=== PATIENT | male | born 1950 | race Caucasian/White ===

== ENCOUNTER → 2019-04-28 09:11 | Outpatient (BNVA) | payer MEDICARE, SELFPAY | PROVIDERS: Family Provider Family Medicine; PCP Family Medicine; Visit Provider Urology | DX: R97.20 Elevated prostate specific antigen [PSA] (principal); N39.9 Disorder of urinary system, unspecified; Z80.42 Family history of malignant neoplasm of prostate | CPT/HCPCS: 81001; 84153 ==

== ENCOUNTER 2019-05-07 09:48 | Outpatient (CLI) | payer MEDICARE, SELFPAY ==
[2019-05-07 10:21] LABS: Basophils % 0.7 %; Eosinophils # 0.1 10^3/uL (0.0-0.8); Eosinophils % 1.1 %; Hematocrit 38.7 % (42.0-52.0); Hemoglobin 12.8 g/dL (11.7-16.6); Lymphocytes # 2.2 10^3/uL (0.8-4.8); Lymphocytes % 40.9 %; Mean Corpuscular HGB Conc 33.1 g/dL (30.0-36.0); Mean Corpuscular Volume 96.8 fL (80-94); Mean Platelet Volume 10.6 fL (7.4-10.4); Monocytes # 0.4 10^3/uL (0.2-0.9); Monocytes % 7.5 %; Neutrophils # 2.7 10^3/uL (1.8-7.7); Neutrophils % 49.6 %; Nucleated Red Blood Cells % 0 %; Platelet Count 208 10^3/cmm (130-400); White Blood Count 5.4 10^3/uL (4.0-10.0)
[2019-05-07 10:37] LABS: Prostate Specific Antigen 7.33 ng/mL (0-4); Thyroid Stimulating Hormone 2.32 uIU/mL (0.27-4.20)
[2019-05-07 10:48] LABS: Alanine Aminotransferase 10 U/L (0-41); Albumin Level 4.2 g/dL (3.5-5.2); Alkaline Phosphatase 47 IU/L (40-130); Anion Gap 16.3 (5-19); Aspartate Amino Transferase 19 U/L (0-40); Blood Urea Nitrogen 12 mg/dL (8-23); Calcium 9.6 mg/dL (8.5-10.5); Carbon Dioxide 24 mmol/L (22-29); Chloride 105 mmol/L (98-107); Chol HDL Ratio 3.34 mg/dL (1.0-5.00); Cholesterol 157 mg/dL (0-200); Globulin 2.3 g/dL (1.3-4.6); Glomerular Filtration Rate 66.2 mL/min (90-130); Glucose 85 mg/dL (65-115); HDL Cholesterol 47 mg/dL (60-100); LDL Cholesterol Calculated 92 mg/dL (50-129); LDL HDL Ratio 1.96 RATIO (0.00-3.22); Potassium 4.3 mmol/L (3.5-5.1); Sodium 141 mmol/L (136-145); Total Bilirubin 0.4 mg/dL (0.15-1.2); Total Protein 6.5 g/dL (6.6-8.7); Triglycerides 92 mg/dL (0-150)
== END 2019-05-07 09:49 | disposition home or self-care (01) ==
LOC: LAB 09:54
PROVIDERS: Family Provider Family Medicine; PCP Family Medicine; Visit Provider Family Medicine
DX: Z00.00 Encounter for general adult medical examination without abnormal findings (principal); R97.20 Elevated prostate specific antigen [PSA]; Z80.42 Family history of malignant neoplasm of prostate
CPT/HCPCS: 36415; 80053; 80061; 84153; 84443; 85025

== ENCOUNTER 2019-06-18 11:09 | Outpatient (CLI) | payer MEDICARE, SELFPAY ==
[2019-06-18 11:46] VITALS: BMI 25.0
--- NOTE | 2019-06-18 11:55 | ECG_ITS ---
NAME OF STUDY: TREADMILL STRESS TEST INDICATION: Chest Pain, EXERCISE DATA: The patient was exercised by Manuel protocol. Baseline heart rate was 50 beats per minute. Baseline blood pressure was 105/63 millimeters of mercury. Target heart rate was 150 beats per minute. Maximum heart rate achieved was 153, which was 102% of the target heart rate. Maximum blood pressure was 184/70 millimeters of mercury. Total exercise time was 11 minutes 11 seconds. Maximum METs achieved was 13.5, maximum VO2 was 47.3. The reason for ending the test was maximum effort achieved. The patient complained of shortness of breath during the stress test, which then resolved at the end of the test. ELECTROCARDIOGRAM: BASELINE: Sinus bradycardia, normal axis, no significant ST-T changes at the baseline noted. EXERCISE: At the peak exercise level, no significant ST-T changes suggestive of ischemia noted. RECOVERY: During the recovery period, heart rate dropped appropriately. No significant ST-T changes in the recovery suggestive of ischemia noted. CONCLUSION: 1. Exercise capacity good. 2. Heart rate response was appropriate. 3. Blood pressure response was hypertensive. 4. Symptoms not suggestive of ischemia. 5. Electrocardiogram portion of the stress test was not suggestive of ischemia. 6. Nuclear scan will be documented separately. Electronically Signed On 06-18-2019 18:03:26 CDT by Reshma Shepherd M.D. [email or web address]
[2019-06-18 12:01] VITALS: BP 169/79; PULSE 80
== END 2019-06-18 11:10 | disposition home or self-care (01) ==
LOC: CDL 11:16
PROVIDERS: Family Provider Family Medicine; PCP Family Medicine; Visit Provider Family Medicine
DX: R07.9 Chest pain, unspecified (principal)
CPT/HCPCS: 93017

== ENCOUNTER 2019-10-10 10:39 | Outpatient (CLI) | payer MEDICARE, SELFPAY | END 2019-10-10 10:40 | disposition home or self-care (01) | LOC: LAB 11:13 | PROVIDERS: PCP Family Medicine; Visit Provider Family Medicine | DX: C61 Malignant neoplasm of prostate (principal) | CPT/HCPCS: 36415; 84153 ==

== ENCOUNTER → 2020-10-24 13:19 | Outpatient (BNVA) | payer MEDICARE, SELFPAY | PROVIDERS: PCP Family Medicine; Visit Provider Nurse Practitioner Family | DX: J06.9 Acute upper respiratory infection, unspecified (principal); Z20.822 Contact with and (suspected) exposure to COVID-19 | CPT/HCPCS: 87426 ==

== ENCOUNTER 2022-05-02 07:31 | Oncology outpatient (recurring) (ONCR) | payer MEDICARE, SELFPAY | END 2022-06-01 23:59 | disposition home or self-care (01) | PROVIDERS: PCP Family Medicine; Visit Provider Internal Medicine Hematology & Oncology | DX: C61 Malignant neoplasm of prostate (principal) | CPT/HCPCS: 99204 ==

== ENCOUNTER 2022-06-11 13:53 | Oncology outpatient (recurring) (ONCR) | payer MEDICARE, SELFPAY ==
--- NOTE | 2022-06-11 14:58 | N.ONRAD NP_ITS ---
Radiation Oncology Consultation Patient Name: Rangel Collazo Date of : 1950 Date of Service: 06/11/2022 Attending Physician: Rashid Esteves M.D. Rangel Collazo was seen in consultation this morning at the request of Lisa Garcia M.D. for consideration of prostate radiotherapy in the management of a recently diagnosed high-risk prostate cancer. He initially was identified to have an elevated PSA level 23.6 ng/mL in November of 2021 and an abnormal digital rectal exam. An MRI of the pelvis completed on December 25, 2021 described a 6.2 cm x 5.5 cm prostate gland with a lesion involving the left side of the prostate gland that extends into the capsule and left seminal vesicle. Nuclear bone scintigraphy ordered on January 08, 2022 did not identify bony metastases. A TRUS biopsy of the prostate gland performed on March 08, 2022 by Gwyn Kumar M.D. at [facility] in [place], [place]. Biopsy specimens diagnosed (the pathology report was requested and personally reviewed in [facility]) an adenocarcinoma with a Antonietta Score of 4+4=8 (Grade Group 4) involving cores from left lateral mid gland (80%), left lateral base (30 to 40%), and left medial mid gland (40%). Specimens from the left lateral mid gland, left medial base and left peripheral zone contained adenocarcinoma with a Antonietta score of 4+3, as well as an adenocarcinoma with a Antonietta score 3+3 was present in the sample from the right apex. A PET scan obtained on April 18, 2022 demonstrate metabolic activity within the left lateral aspect of the prostate (SUV 4) and a left axillary lymph node measuring 1.4 cm (SUV 2.9). 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 The patient was evaluated for radiotherapy treatment options. I discussed the patient's AJCC clinical stage IIIA (T2bN0) high-risk prostate cancer and the National Comprehensive Cancer Network Guidelines recommending androgen deprivation therapy and external beam radiotherapy with or without brachytherapy. These recommendations were based upon several trials (RTOG 9202, EORTC 35042, and DART/GICOR). The EORTC study demonstrated superior survival with long-term ADT. Subgroup analyses of the RTOG and DART/GICOR trials confirmed an overall survival advantage in high-risk patients. I reviewed the potential toxicities of pelvic radiotherapy. The patient would like to avoid androgen deprivation therapy and thus has elected for surgery. I will order a PSMA scan to confirm local disease. The patient's medical treatment plan was discussed with Gwyn Kumar M.D. Signed by: Rashid Esteves 06/11/2022 2:56:35 PM
== END 2022-07-01 23:59 | disposition home or self-care (01) ==
PROVIDERS: PCP Family Medicine; Visit Provider Internal Medicine Hematology & Oncology
DX: C61 Malignant neoplasm of prostate (principal); C83.38 Diffuse large B-cell lymphoma, lymph nodes of multiple sites
CPT/HCPCS: 99205

== ENCOUNTER 2023-10-24 16:05 | Outpatient (CLI) | payer MEDICARE, SELFPAY ==
--- NOTE | 2023-10-24 16:18 | XR_ITS ---
WS: [id number] Chest with bilateral rib detail, 7 views, 10/24/2023 Clinical Data: FALL Comparison: None. Findings: The chest shows no nodules, masses or effusions. The heart is normal. The pulmonary vascularity is no t remarkable. No pneumonia or pneumothorax is present. The aortic arch and descending thoracic aorta show tortuosity. The right ribs show no fractures or dislocations. The lateral aspect of the left eighth and ninth rib s show possible cortical fractures. No pneumothorax or subcutaneous emphysema is seen. There are surg ical clips in the left axilla. XR/XR ribs BI mn 4V w [id number] Impression: 1. Possible nondisplaced fractures of the lateral aspect of left eighth and racheal th ribs. 2. Negative right rib detail. 3. Atherosclerosis.
== END 2023-10-24 16:06 | disposition home or self-care (01) ==
LOC: RAD 16:12
PROVIDERS: PCP Family Medicine; Visit Provider Nurse Practitioner Family
DX: M54.50 Low back pain, unspecified (principal); W19.XXXA Unspecified fall, initial encounter; S22.42XA Multiple fractures of ribs, left side, initial encounter for closed fracture; I70.0 Atherosclerosis of aorta
CPT/HCPCS: 71111